=== PATIENT | female | born 1995 | race Caucasian/White ===

== ENCOUNTER 2018-10-20 17:39 | Emergency (ER) | payer OTHER ==
[~2018-10-20] VITALS: Ht 172.7 cm; Wt 68.0 kg
[2018-10-20] MEDS ORDERED: NORCO 5-325 TA1 EAC1 PO (19:38)
[2018-10-20] MEDS ORDERED: IBUPROFEN 800800 M1 PO (19:38)
[2018-10-20 20:00] VITALS: BP 140/92
== END 2018-10-20 20:00 | disposition home or self-care (01) ==
LOC: M.ERS 17:39
DX: M25.561 Pain in right knee (principal); F32.9 Major depressive disorder, single episode, unspecified